=== PATIENT | male | born 1960 | race Caucasian/White ===

== ENCOUNTER 2016-08-26 10:21 | Observation (INO) | payer OTHER ==
[~2016-08-26 10:21] MED LIST: BACITRACIN 50,000 UNITS/10 ML SYR IRR ONE; BUPIVACAINE/EPI 0.25% 30 ML SDV ONE; CHLORHEXIDINE GLUC HIBICLENS 118 ML BTL TP ONE; THROMBIN (RECOMBINANT) 5,000 UNIT VIAL TP ONE; ceFAZolin 2 GM/DEXTROSE 100 ML IV ONE
[2016-08-26] MEDS ORDERED: LIDOCAINE 1% 5 ML SDV ID PRN (11:17)
[2016-08-26] MEDS ORDERED: LR 1,000 ML IV ONE (11:17)
[2016-08-26] MEDS ORDERED: CEFAZOLIN 2 GM/DEXTROSE/100 ML BAG IV ONE (11:19)
[2016-08-26] MEDS ORDERED: LIDOCAINE 1% 5 ML SDV ONE (11:25)
[2016-08-26] MEDS ORDERED: BUPIVACAINE 0.5% 30 ML SDV ONE (12:25)
[2016-08-26] MEDS ORDERED: MIDAZOLAM 2 MG/2 ML VIAL ONE (12:41)
[2016-08-26] MEDS ORDERED: PROPOFOL/EMULSION 500 MG/50 ML BOTTLE IV ONE ×2 (12:53→14:51)
[2016-08-26] MEDS ORDERED: fentaNYL 100 MCG/2 ML INJ ONE ×2 (12:53→16:36)
[2016-08-26] MEDS ORDERED: LIDOCAINE 2% 100 MG/5 ML SYR IVP ONE (12:53)
[2016-08-26] MEDS ORDERED: REMIFENTANIL HCL 1 MG VIAL ONE ×2 (12:53→14:51)
[2016-08-26] MEDS ORDERED: LIDOCAINE HCL 160 MG/4 ML LTA KIT TP ONE (12:56)
[2016-08-26] MEDS ORDERED: PHENYLEPHRINE HCL 100 MCG/ML SYR ONE ×2 (13:02→15:44)
[2016-08-26] MEDS ORDERED: morphINE PCA 30 MG/30 ML PCA IV PRN (13:35)
[2016-08-26] MEDS ORDERED: ACETAMINOPHEN 325 MG TAB PO PRN (13:35)
[2016-08-26] MEDS ORDERED: DIAZEPAM 10 MG/2 ML SYR IVP PRN (13:35)
[2016-08-26] MEDS ORDERED: MAGNESIUM HYDROXIDE 30 ML UDCUP PO PRN (13:35)
[2016-08-26] MEDS ORDERED: ONDANSETRON 4 MG/2 ML VIAL IVP PRN (13:35)
[2016-08-26] MEDS ORDERED: BISACODYL 10 MG SUPP PR PRN (13:35)
[2016-08-26] MEDS ORDERED: diphenhydrAMINE 25 MG CAP PO PRN (13:35)
[2016-08-26] MEDS ORDERED: NALOXONE HCL 0.4 MG/ML INJ IVP PRN (13:35)
[2016-08-26] MEDS ORDERED: LACTULOSE 20 GM/30 ML UDCUP PO PRN (13:35)
[2016-08-26] MEDS ORDERED: TEMAZEPAM 15 MG CAP PO PRN (13:35)
[2016-08-26] MEDS ORDERED: POLYETHYLENE GLYCOL 3350 17 GM PKT PO PRN (13:35)
[2016-08-26] MEDS ORDERED: PHENYLEPHRINE 10 MG/ML SDV ONE (13:44)
[2016-08-26] MEDS ORDERED: ONDANSETRON 4 MG/2 ML VIAL ONE (13:53)
[2016-08-26] MEDS ORDERED: DEXAMETHASONE 4 MG/ML VIAL ONE ×2 (13:54)
[2016-08-26] MEDS ORDERED: METHOCARBAMOL 750 MG TAB ONE (16:37)
[2016-08-26] MEDS ORDERED: [UNRECOGNIZED DRUG - REMARK] PO PRN (16:50)
[2016-08-26] MEDS ORDERED: NON-FORMULARY NEW DRUG (Loratadine [Claritin 10 Mg] 10 MG) PO PRN (16:50)
--- NOTE | 2016-08-26 16:50 | SOAPPROG ---
SOAP Progress Note Assessment/Plan: Post Op Visit: S: Awake and alert, NAD. Pt with expected neck pain O: AFVSS/PERRLA/EOMI No droop CN 2-12 grossly intact +lt touch 5/5 BUE/BLE = CDI neck soft and supple A/P: 55 yo male that is s/p ACDF C5-C7 -orders in place -call with any questions or concerns -take medications as directed -pt seen by Dr Morales as well 08/26/16 16:47 Objective: Vital Signs Temp Pulse Resp BP Pulse Ox 37 C 83 14 114/79 92 08/26/16 16:26 08/26/16 16:26 08/26/16 16:26 08/26/16 16:26 08/26/16 16:26 08/25/16 08/26/16 08/27/16 05:59 05:59 05:59 Intake Total 1500 Output Total 150 Balance 1350 ICD10 Worksheet Patient Problems: Problems Problem Status Diagnosed Arthrodesis status Acute Cervical radiculitis Acute Cervical stenosis of spine Acute - ICD10 Problem Qualifiers (1) Cervical stenosis of spine (2) Cervical radiculitis (3) Arthrodesis status
[2016-08-26] MEDS ORDERED: DIAZEPAM 10 MG/2 ML SYR ONE (16:51)
[2016-08-26] MEDS ORDERED: CETIRIZINE 10 MG TAB PO PRN (17:47)
[2016-08-26] MEDS: NS W/ 20 KCl/L 1,000 ML IV SCH ×2 (18:15→18:16)
[2016-08-26] MEDS: HYDROmorphONE/DILAUDID 1 MG/ML SYR IVP PRN (18:16)
--- NOTE | 2016-08-26 18:18 | DX ---
Fluoroscopy: 16.2 seconds, 3.73 mGy, of intraoperative fluoroscopy was employed by Dr. Morales for anterior cervica l fusion with diskectomy. 3 digital images are available demonstrating progression of anterior cervic al fusion in the lower cervical region.
[2016-08-26] MEDS: metFORMIN HCL 500 MG TAB PO SCH (18:23)
[2016-08-26] MEDS: HYDROCODONE/APAP 10/325 TAB PO PRN ×2 (18:23→23:19)
[2016-08-26] MEDS: MONTELUKAST SODIUM 10 MG TAB PO SCH (18:23)
--- NOTE | 2016-08-26 19:31 | GOP ---
[f rep st] OPERATIVE REPORT DATE OF OPERATION: 08/26/2016 SURGEON: Hamzah Morales MD SOURCING ASSOCIATE: Luis E Stoddard PA-C PREOPERATIVE DIAGNOSIS: 1. Cervical spondylosis with cervical radiculopathy. 2. Cervicalgia. POSTOPERATIVE DIAGNOSIS: 1. Cervical spondylosis with cervical radiculopathy. 2. Cervicalgia. PROCEDURE PERFORMED: Anterior cervical diskectomy with arthrodesis and decompression C5-6, C6-7 (225 13, 50612), anterior cervical plating, C5-C6-C7 ([id number]), placement of biomechanical intervertebral de vice C5-6, C6-7 without anchors. ([id number] x 2), microscope, same-incision bone graft harvest. FINDINGS: ESTIMATED BLOOD LOSS: 50 cc. INDICATIONS: The patient is a 55-year-old with neck pain and left arm more than right arm symptoms. He had an MRI of the cervical spine which demonstrated spondylosis and bilateral foraminal stenosis at C5-6, C6-7. There was a degree of spondylolisthesis at C7-T1 and some mild foraminal stenosis at that level that I did not think symptomatic. I suggested 2-level anterior cervical diskectomy and fu tara. The risk of pseudoarthrosis, adjacent segment disease, screw and hardware malposition, malfunc tion, infection, esophageal injury, carotid injury, recurrent laryngeal nerve injury, was discussed. He knew there was a chance that surgery would fail to give him benefit, but we thought surgery was a reasonable treatment option. He wanted to proceed. DESCRIPTION OF PROCEDURE: The patient was taken to the operating room, placed in the supine position . General anesthesia was begun. A midline shoulder roll was placed. Arms were tucked at the sides. The neck was kept in neutral position, but the occiput was extended. He was sterilely prepped and draped in usual fashion. A localizing x-ray had been taken. We made an incision in the inferior nec k crease on the right-hand side. The subcutaneous tissue was dissected using Bovie cautery through t he platysma, and then we used sharp and blunt dissection medial to the sternocleidomastoid and latera l to the strap muscles, down to the prevertebral space. A nice exposure was obtained. There was isatu lly no bleeding whatsoever. A needle was inserted and we dissected the longus colli muscles off the spine at 5-6, 6-7. There was a degree of spondylosis of bone spurring and we harvested these bone sp urs for autologous grafting purposes. We put a distraction pin at C6-C7 and under the microscope we incised the C6-7 disk, removed the disk and the cartilaginous endplates. We then opened the posterio r longitudinal ligament, decompressed the thecal sac and the bilateral exiting C7 nerve roots without difficulty, and chose an 8 mm anatomic PEEK PTC implant from [employer] packed with bone autograft an d inserted at C6-7. We then moved our distraction pins and did likewise at 5-6. The 5-6 disk space was very collapsed and degenerative. We drilled out the disk and the cartilaginous endplates. We th en drilled and harvested subchondral bone. Posteriorly, coming off the C5 vertebral body, was a broa d-based bone spur causing spinal stenosis, and this was removed. We opened the PLL and decompressed the thecal sac and the neural foramina bilaterally, and this level took actually considerable time, m ore than C6-7. There was significant stenosis in both foramina and care was taken to decompress both of the exiting C6 nerves. We took the bone autograft, placed in a 7 mm anatomic PEEK cage and sized it for the space and inserted it at C5-6. We then removed our distraction pins, prepared the ventra l surface of the vertebral body for acceptance of the plate. We then put the plate in place followed by all 6 screws and shot an x-ray confirming all of the hardware in excellent position. We achieved meticulous hemostasis, put 7 cc of the Dysphagia Study drug into the prevertebral space, and then cl osed the platysma with interrupted Vicryl sutures. The skin was reapproximated with interrupted Vicr yl sutures, and Steri-Strips were applied to the skin itself. There were no complications. COMPLICATIONS: None. /[id number]/[facility] [place]
[2016-08-26] MEDS: FAMOTIDINE 20 MG TAB PO SCH (20:31)
[2016-08-26] MEDS: ONDANSETRON DISINTEGRATING 4 MG TAB PO PRN ×2 (20:32→23:19)
[2016-08-26] MEDS: DIAZEPAM 5 MG TAB PO PRN (20:39)
[2016-08-26] MEDS: SENNOSIDES/DOCUSATE SODIUM TAB PO SCH (20:39)
[2016-08-26] MEDS: oxyCODONE IR 5 MG TAB PO PRN (20:39)
[2016-08-26] MEDS ORDERED: FAMOTIDINE 20 MG/NACL 50 ML IV SCH (21:00)
[2016-08-26] MEDS: METHOCARBAMOL 750 MG TAB PO PRN (23:18)
[2016-08-27] MEDS: oxyCODONE IR 5 MG TAB PO PRN ×2 (03:26→12:46)
[2016-08-27] MEDS: DIAZEPAM 5 MG TAB PO PRN ×2 (03:26→12:46)
[2016-08-27] MEDS ORDERED: PNEUMOCOCCAL 0.5ML VACCINE VIAL IM ONE (05:00)
[2016-08-27] MEDS: HYDROCODONE/APAP 10/325 TAB PO PRN ×6 (05:37→23:58)
[2016-08-27] MEDS: LEVOTHYROXINE 100 MCG TAB PO SCH (05:37)
[2016-08-27] MEDS: METHOCARBAMOL 750 MG TAB PO PRN ×4 (05:37→23:58)
--- NOTE | 2016-08-27 07:33 | NEUSURGPN ---
Assessment/Plan: S: Doing well, no problems swallowing yet this morning with soft foods. Has sore throat. Posterior shoulder pain. Denies sob, n/v. O: AFVSS/NAD +lt touch 5/5 BUE/BLE = CDI neck soft and supple A/P: 55 yo male that is s/p ACDF C5-C7 -optimize pain management -Continue soft foods -Collar at all times -PT/OT -call with any questions or concerns -Dispo- if doing well this afternoon, can go home today -pt seen by Dr Morales as well - Physician Discussed Patient with : Andrew Patient Seen by : Andrew Neurosurgery Physical Exam - Vitals, I&O, Labs I and O 08/26/16 08/27/16 08/28/16 05:59 05:59 05:59 Intake Total 3170 Output Total 1200 Balance 1970 Weight 98.883 kg Intake: Oral (ml) 670 IV Intake (ml) 1550 IV Infused (ml) 950 ceFAZolin 1 GM/DEXTROSE 50 50 ml @ 200 mls/hr IV Q8HRS [facility] Rx#:[id number] NS W/ 20 KCl/L 1,000 ml @ 900 75 mls/hr IV CONT [facility]ESHA Rx #:[id number] Output: Urine (ml) 1050 Urinal 1050 Estimated Blood Loss (ml) 150 Other: Intake Quantity No Sufficient Number of Voids Urinal 1 Post Void Residual Scan Volume (ml) Urinal 350 Vital Signs Temp Pulse Resp BP Pulse Ox 37.4 C 98 18 133/82 H 92 08/27/16 03:28 08/27/16 03:28 08/27/16 03:28 08/27/16 03:28 08/27/16 03:28 ICD10 Worksheet Patient Problems: Problems Problem Status Diagnosed Arthrodesis status Acute Cervical radiculitis Acute Cervical stenosis of spine Acute
[2016-08-27] MEDS: VALSARTAN 160 MG TAB PO SCH (08:10)
[2016-08-27] MEDS: metFORMIN HCL 500 MG TAB PO SCH ×2 (08:10→18:21)
[2016-08-27] MEDS: ATORVASTATIN CALCIUM 40 MG TAB PO SCH (08:11)
[2016-08-27] MEDS: METOPROLOL TARTRATE 50 MG TAB PO SCH (08:11)
[2016-08-27] MEDS: SENNOSIDES/DOCUSATE SODIUM TAB PO SCH ×2 (08:11→20:54)
[2016-08-27] MEDS: FAMOTIDINE 20 MG TAB PO SCH ×2 (08:11→20:55)
[2016-08-27] MEDS ORDERED: NON-FORMULARY NEW DRUG (Valsartan [Diovan] 320 MG) PO SCH (09:00)
[2016-08-27] MEDS: HYDROmorphONE/DILAUDID 1 MG/ML SYR IVP PRN ×2 (13:09→14:45)
--- NOTE | 2016-08-27 15:20 | DX ---
Cervical spine,2 views 08/27/2016 History: Postop evaluation Comparison examination:None available Findings: Surgical features of diskectomy and interbody fusion are identified at C5-C6 and C6-C7 with ventral retention plate and intervertebral graft. Alignment through the operative bed is anatomic, a nd no hardware complications are identified. Impression: 1. Diskectomy and interbody fusion from C3 C5 through C7 without complication.
[2016-08-27] MEDS: MONTELUKAST SODIUM 10 MG TAB PO SCH (18:20)
[2016-08-28] MEDS: LEVOTHYROXINE 100 MCG TAB PO SCH (05:48)
[2016-08-28] MEDS: METHOCARBAMOL 750 MG TAB PO PRN (05:48)
[2016-08-28] MEDS: HYDROCODONE/APAP 10/325 TAB PO PRN ×2 (05:48→11:01)
--- NOTE | 2016-08-28 07:40 | NEUSURGPN ---
Date of Surgery: 08/26/16 Post Op Day: 2 Assessment/Plan: Assessment: 55 yo male that is s/p ACDF C5-C7 POD #2 Plan: -s/p ACDF C5-C7-pt doing better this am with pain control -eating and drinking fine -post op xrays look good -tolerating collar well -CDI -neck soft and supple -PT/OT/ST- CPM -plan for dc later today -call with any questions or concerns -take medications as directed -pt seen by Dr Morales as well 08/26/16 16:47 Subjective: Awake and alert. NAD. Eating/drinking and voiding. No f/c/n/v/d. No no/neck/ chest/abd or gu complaints. Objective: AFVSS/PERRLA/EOMI No droop CN 2-12 grossly intact +lt touch 5/5 BUE/BLE = CDI neck soft and supple Neuro Check Frequency: per routine Urinary Catheter in Place: No Catheter Insertion Date: 08/26/16 - Physician Discussed Patient with : Andrew Patient Seen by : Andrew Neurosurgery Physical Exam - Vitals, I&O, Labs I and O 08/27/16 08/28/16 08/29/16 05:59 05:59 05:59 Intake Total 3170 750 Output Total 1200 1900 Balance 1970 -1150 Weight 98.883 kg Intake: Oral (ml) 670 750 IV Intake (ml) 1550 IV Infused (ml) 950 ceFAZolin 1 GM/DEXTROSE 50 50 ml @ 200 mls/hr IV Q8HRS [facility] Rx#:[id number] NS W/ 20 KCl/L 1,000 ml @ 900 75 mls/hr IV CONT ALESHA Rx #:[id number] Output: Urine (ml) 1050 1900 Urinal 1050 1900 Estimated Blood Loss (ml) 150 Other: Intake Quantity No Yes Sufficient Number of Voids Urinal 1 1 Post Void Residual Scan Volume (ml) Urinal 350 Vital Signs Temp Pulse Resp BP Pulse Ox 36.5 C 83 18 129/84 H 95 08/27/16 23:45 08/27/16 23:45 08/27/16 23:45 08/27/16 23:45 08/27/16 23:45 ICD10 Worksheet Patient Problems: Problems Problem Status Diagnosed Arthrodesis status Acute Cervical radiculitis Acute Cervical stenosis of spine Acute - ICD10 Problem Qualifiers (1) Cervical stenosis of spine (2) Cervical radiculitis (3) Arthrodesis status
[2016-08-28 08:01] VITALS: TEMP 98.1
[2016-08-28] MEDS: SENNOSIDES/DOCUSATE SODIUM TAB PO SCH (08:28)
[2016-08-28] MEDS: VALSARTAN 160 MG TAB PO SCH (08:29)
[2016-08-28] MEDS: ATORVASTATIN CALCIUM 40 MG TAB PO SCH (08:29)
[2016-08-28] MEDS: FAMOTIDINE 20 MG TAB PO SCH (08:31)
[2016-08-28] MEDS: METOPROLOL TARTRATE 50 MG TAB PO SCH (08:31)
[2016-08-28] MEDS: metFORMIN HCL 500 MG TAB PO SCH (08:31)
[2016-08-28 08:38] VITALS: BP 139/86
[2016-08-28] MEDS: DIAZEPAM 5 MG TAB PO PRN ×2 (11:06→14:56)
[2016-08-28 13:55] VITALS: PULSE 72; RESP 14; O2SAT 85
[2016-08-29] MEDS ORDERED: ENOXAPARIN 40 MG/0.4 ML SYR SC SCH (09:00)
== END 2016-08-28 15:42 | disposition home or self-care (01) ==
LOC: F3E 10:21 → F3N 17:38
PROVIDERS: ADMIT Neurological Surgery; ATTEND Neurological Surgery
DX: M47.22 Other spondylosis with radiculopathy, cervical region (principal); I10 Essential (primary) hypertension; E78.5 Hyperlipidemia, unspecified; J45.909 Unspecified asthma, uncomplicated
CPT/HCPCS: 22551; 22552; 72040; 76001; 90471; 97116; 97161; 97165; 97535; G0378; C1713; G0009; J0690; J1100; J1170; J2001; J2250; J2370; J2405; J2704; J3010